=== PATIENT | male | born 1955 | race Caucasian/White ===

== ENCOUNTER 2019-07-17 13:35 | Inpatient (IN) | payer OTHER ==
[2019-07-17 15:59] VITALS: BMI 30.9
--- NOTE | 2019-07-17 17:53 | HP ---
"CIWA Score Nausea/Vomitin Muscle Tremors: 7-Severe,w/o Arm Extended Anxiety: 3 Agitation: 1-Slight > Activity Paroxysmal Sweats: 3 (Increased facial moisture) Orientation: 0-Oriented Tacttile Disturbances: 0-None Auditory Disturbances: 0-None Visual Disturbances: 0-None Headache: 0-None Present CIWA-Ar Total Score: 17 - Admission Criteria OASAS Guidelines: Admission for Medically Managed Detox: Requires at least one of the followin. CIWA greater than 12 2. Seizures within the past 24 hours 3. Delirium tremens within the past 24 hours 4. Hallucinations within the past 24 hours 5. Acute intervention needed for co occurring medical disorder 6. Acute intervention needed for co occurring psychiatric disorder 7. Severe withdrawal that cannot be handled at a lower level of care (continued vomiting, continued diarrhea, abnormal vital signs) requiring intravenous medication and/or fluids 8. Patient presents the following: CIWA greater than 12 (DENZEL: 0.036) Admission Criteria Met: Admission criteria met Admission ROS S - HPI Chief Complaint: Here to detox from alcohol cause every morning I get up sick. Allergies/Adverse Reactions: Allergies Allergy/AdvReac Type Severity Reaction Status Date / Time No Known Allergies Allergy Verified 07/17/19 15:54 History of Present Illness: First admission for this 64 yo w/ alcohol withdrawal symptoms seeking detox. Has had prior detoxes at other facilities over 5 years ago. Denies hx seizures or blackouts. DENZEL: 0.036 UTox: Neg Alcohol use since age 6/8. Currently drinks 2 pints vodka x past 5 mongths. Heroin age 21. Was on MMTP and stopped all opiates and MTD 6 years ago. Nicotine use since age 48. Smokes 1 PPD. PMHx: HTN - doesn't take when drinks. Doesn't remember name of medications. ? Pharmacy: [facility]: [phone] MHHx: Maxim depression. Denies thoughts of harming self or others. SHx: Domiciled. Unemployed. Denies legal issues. Search Terms: Franky Weinstein, 1955 Search Date: 07/17/2019 05:57:05 PM The Drug Utilization Report below displays all of the controlled substance prescriptions, if any, that your patient has filled in the last twelve months. The information displayed on this report is compiled from pharmacy submissions to the Department, and accurately reflects the information as submitted by the pharmacies. This report was requested by: Cait Rupali Valeriy | Reference #: [id number] There are no results for the search terms that you entered. Exam Limitations: No Limitations - Ebola screening Have you traveled outside of the country in the last 21 days: No Have you had contact with anyone from an Ebola affected area: No Have you been sick,other than usual withdrawal symptoms: No Do you have a fever: No - Review of Systems Constitutional: Changes in sleep (Difficulty falling asleep.) EENT: reports: Blurred Vision, Dental Problems (Missing many teeth. Chews and swallows ok.) Respiratory: reports: No Symptoms reported Cardiac: reports: No Symptoms Reported GI: reports: Nausea : reports: No Symptoms Reported Musculoskeletal: reports: No Symptoms Reported Integumentary: reports: No Symptoms Reported Neuro: reports: Tremors Endocrine: reports: No Symptoms Reported Hematology: reports: Blood Clots (2019 - blood clot in brain - not palce on blood thinners) Psychiatric: reports: Mood/Affect Appropiate, Orientated x3, Anxious Patient History - PPD History Previous Implant?: Yes Documented Results: Negative w/o proof (Unsure) Implanted On Prior R Admission?: No PPD to be Administered?: Yes - Smoking Cessation Smoking history: Current every day smoker Have you smoked in the past 12 months: Yes Aproximately how many cigarettes per day: 20 Hx Chewing Tobacco Use: No Initiated information on smoking cessation: Yes 'Breaking Loose' booklet given: 07/17/19 - Substance & Tx. History Hx Alcohol Use: Yes Hx Substance Use: Yes Substance Use Type: Alcohol, Heroin Hx Substance Use Treatment: Yes (detox, Methadone d/c'd 6 years ago) - Substances abused Alcohol Substance route: Oral Frequency: Daily Amount used: 2 pints of vodka Age of first use: 6 Date of last use: 07/17/19 Admission Physical Exam BHS - Vital Signs Vital Signs: Vital Signs - 24 hr 07/17/19 15:56 Temperature 97.6 F Pulse Rate 90 Respiratory 18 Rate Blood Pressure 163/99 - Physical General Appearance: Yes: Nourished, Mild Distress, Obese, Tremorous, Sweating ( Increased facial moisture), Other (DENZEL: 0.036) HEENTM: Yes: EOMI, Hearing grossly Normal, Normocephalic, Normal Voice, VESNA, Pharynx Normal Respiratory: Yes: Lungs Clear (Pulse Ox = 97 %), Normal Breath Sounds, No Respiratory Distress, Other (CVough productive of thick whitish -yellow tinged phlegm.) Neck: Yes: No masses,lesions,Nodules, Supple Breast: Yes: Breast Exam Deferred Cardiology: Yes: Regular Rate (H), S1, S2, Irregular (Irreg rhythm) Abdominal: Yes: Non Tender, Soft, Increased Bowel Sounds, Protuberent ( Increased abd adiposity) Genitourinary: Yes: Within Normal Limits Back: Yes: Normal Inspection Musculoskeletal: Yes: full range of Motion, Gait Steady Extremities: Yes: Normal Capillary Refill, Normal Range of Motion, Tremors ( gross tremors) Neurological: Yes: natural resource technician II-XII NML intact, Fully Oriented, Alert, Motor Strength 5/5, Normal Mood/Affect, Normal Response Integumentary: Yes: Normal Color, Warm, Moist (Increased facial moisture) Lymphatic: Yes: Within Normal Limits - Diagnostic (1) Alcohol dependence with withdrawal, uncomplicated Current Visit: Yes Status: Acute (2) Essential (primary) hypertension Current Visit: Yes Status: Acute (3) Obesity (BMI 30.0-34.9) Current Visit: Yes Status: Acute (4) Irregular heart rhythm Current Visit: Yes Status: Acute Cleared for Admission S - Detox or Rehab [facility] Level of Care: Medically Managed Detox Regimen/Protocol: Librium Claeared for Rehab Admission: No Breathalyzer - Breathalyzer Breathalyzer: 0.036 Urine Drug Screen - Test Device Lot number: [id number] Expiration date: 04/10/21 - Control Is test valid?: Yes - Results Drug screen NEGATIVE: Yes Inpatient Rehab Admission - Rehab Decision to Admit Inpatient rehab admission?: No"
[2019-07-17] MEDS ORDERED: MAGNESIUM HYDROX 2400MG/30ML ORAL SUSPENSION 30 ML CUP PO PRN (18:13)
[2019-07-17] MEDS ORDERED: NICOTINE POLACRILEX 2 MG GUM BUC PRN (18:13)
[2019-07-17] MEDS ORDERED: MENTHOL/PHENOL 1 EACH UD MM PRN (18:13)
[2019-07-17] MEDS ORDERED: guaiFENesin 200 MG/10 ML 10 ML UNIT-DOSE CUPS PO PRN (18:13)
[2019-07-17] MEDS ORDERED: BISMUTH SUBSALICYLATE 524 MG/30 ML UD PO PRN (18:13)
[2019-07-17] MEDS ORDERED: MAG HYDROX/AL HYDROX/SIMETH 30 ML UNIT-DOSE CUP PO PRN (18:13)
[2019-07-17] MEDS ORDERED: ACETAMINOPHEN 325 MG TABLET (FP) PO PRN ×2 (18:13)
[2019-07-17] MEDS ORDERED: IBUPROFEN 400 MG TABLET (FP) PO PRN (18:13)
[2019-07-17] MEDS ORDERED: chlordiazePOXIDE HCL 10 MG CAPSULE PO PRN (18:13)
[2019-07-17] MEDS ORDERED: MAGNESIUM CITRATE 300 ML BOTTLE PO PRN (18:13)
[2019-07-17] MEDS ORDERED: cloNIDine HCL 0.1 MG TABLET PO ONE (18:20)
[2019-07-17] MEDS ORDERED: chlordiazePOXIDE HCL 10 MG CAPSULE PO ONE (19:00)
[2019-07-17] MEDS: ASPIRIN COATED 81 MG TABLET.EC PO SCH (19:14)
[2019-07-17] MEDS: guaiFENesin 200 MG/10 ML 10 ML UNIT-DOSE CUPS PO SCH (19:14)
[2019-07-17] MEDS: THIAMINE HCL 100 MG TABLET (FP) PO SCH (21:12)
[2019-07-17] MEDS: chlordiazePOXIDE HCL 25 MG CAPSULE PO SCH (21:12)
[2019-07-18] MEDS: chlordiazePOXIDE HCL 25 MG CAPSULE PO SCH ×3 (05:58→21:04)
[2019-07-18] MEDS: guaiFENesin 200 MG/10 ML 10 ML UNIT-DOSE CUPS PO SCH ×3 (07:56→17:57)
--- NOTE | 2019-07-18 09:05 | PN ---
S CIWA - CIWA Score Nausea/Vomitin-Mild Nausea/No Vomiting Muscle Tremors: 2 Anxiety: 1-Mildly Anxious Agitation: 1-Slight > Activity Paroxysmal Sweats: No Perspiration Orientation: 0-Oriented Tacttile Disturbances: 0-None Auditory Disturbances: 0-None Visual Disturbances: 0-None Headache: 1-Very Mild CIWA-Ar Total Score: 6 BHS Progress Note (SOAP) Subjective: pt admitted yesterday for alcohol detox. States feeling fine today. Plan is to go back home after detox O: Vital Signs - 24 hr 07/17/19 07/17/19 07/17/19 15:56 19:12 21:20 Temperature 97.6 F 97.9 F 97.5 F L Pulse Rate 90 80 122 H Respiratory 18 18 18 Rate Blood Pressure 163/99 161/118 H 149/99 07/18/19 07/18/19 07/18/19 00:30 03:30 06:24 Temperature 97.7 F Pulse Rate 102 H Respiratory 18 18 16 Rate Blood Pressure 142/97 labs pending a/p: Alcohol detox- continue protocol High BP: pt states he has a h/o HTN, stopped taking meds several months ago- does not know name of meds will start on norvasc 5mg and monitor BP
[2019-07-18] MEDS: PRENATAL VITAMINS W/ FOLIC ACID TABLET (FP) PO SCH (09:19)
[2019-07-18] MEDS: NICOTINE 21 MG/24 HOURS TOPICAL PATCH TD SCH (09:19)
[2019-07-18] MEDS: ASPIRIN COATED 81 MG TABLET.EC PO SCH (09:19)
--- NOTE | 2019-07-18 09:26 | EKG ---
Test Reason : Blood Pressure : / mmHG Vent. Rate : 124 BPM Atrial Rate : 115 BPM P-R Int : 000 ms QRS Dur : 084 ms QT Int : 286 ms P-R-T Axes : 000 -65 016 degrees QTc Int : 410 ms POOR DATA QUALITY, INTERPRETATION MAY BE ADVERSELY AFFECTED ATRIAL FIBRILLATION WITH RAPID VENTRICULAR RESPONSE WITH PREMATURE VENTRICULAR OR ABERRANTLY CONDUCTED COMPLEXES PULMONARY DISEASE PATTERN LEFT ANTERIOR FASCICULAR BLOCK ABNORMAL ECG NO PREVIOUS ECGS AVAILABLE Confirmed by Benny Prieto MD ([id number]) on 07/18/2019 9:26:19 AM Referred By: Confirmed By:Benny Prieto MD
[2019-07-18 09:40] LABS: HEMOGLOBIN 14.1 GM/dL (11.7-16.9); MCH 34.5 pg (25.7-33.7); MCHC 33.6 g/dl (32.0-35.9); MEAN CELL VOLUME 102.6 fl (80-96); MEAN PLT VOLUME 9.8 fl (7.5-11.1); PLATELET COUNT 123 K/MM3 (134-434); RDW 14.7 % (11.9-15.9)
[2019-07-18 11:09] LABS: ALBUMIN 3.7 g/dl (3.4-5.0); BILIRUBIN,TOTAL 1.2 mg/dL (0.2-1); BLOOD UREA NITROGEN 12.3 mg/dL (7-18); CALCIUM 9.3 mg/dL (8.5-10.1); POTASSIUM 4.8 mmol/L (3.5-5.1); TOT PROT 7.3 g/dl (6.4-8.2)
[2019-07-18] MEDS: amLODIPine BESYLATE 5 MG TABLET (FP) PO SCH (12:36)
[2019-07-18] MEDS: MELATONIN 5 MG TABLETS PO PRN (22:04)
[2019-07-18] MEDS: THIAMINE HCL 100 MG TABLET (FP) PO SCH (22:04)
[2019-07-19] MEDS: chlordiazePOXIDE 5 MG CAPSULE PO SCH ×3 (05:30→22:08)
[2019-07-19] MEDS: guaiFENesin 200 MG/10 ML 10 ML UNIT-DOSE CUPS PO SCH ×4 (05:31→17:56)
[2019-07-19] MEDS: amLODIPine BESYLATE 5 MG TABLET (FP) PO SCH (10:05)
[2019-07-19] MEDS: PRENATAL VITAMINS W/ FOLIC ACID TABLET (FP) PO SCH (10:05)
[2019-07-19] MEDS: ASPIRIN COATED 81 MG TABLET.EC PO SCH (10:05)
[2019-07-19] MEDS: NICOTINE 21 MG/24 HOURS TOPICAL PATCH TD SCH (10:05)
[2019-07-19 10:36] LABS: PH,URINE 6.5 (5.0-8.0); URINE APPEARANCE CLEAR; URINE BILIRUBIN NEGATIVE (NEGATIVE); URINE COLOR DK YELLOW; URINE GLUCOSE (UA) NEGATIVE (NEGATIVE); URINE KETONE 1+ (NEGATIVE); URINE LEUK ESTERASE NEGATIVE (NEGATIVE); URINE NITRITE NEGATIVE (NEGATIVE); URINE PROTEIN TRACE (NEGATIVE)
--- NOTE | 2019-07-19 11:01 | PN ---
[facility] CIWA - CIWA Score Nausea/Vomitin-Mild Nausea/No Vomiting Muscle Tremors: 2 Anxiety: 2 Agitation: 2 Paroxysmal Sweats: No Perspiration Orientation: 0-Oriented Tacttile Disturbances: 1-Very Mild Itch/Numbness Auditory Disturbances: 0-None Visual Disturbances: 0-None Headache: 1-Very Mild CIWA-Ar Total Score: 9 S Progress Note (SOAP) Subjective: alert,irritable,anxious,interrupted sleep,interrupted Objective: 07/19/19 11:00 Vital Signs Temperature 97.9 F 07/19/19 09:15 Pulse Rate 105 H 07/19/19 09:15 Respiratory Rate 18 07/19/19 09:15 Blood Pressure 132/76 07/19/19 09:15 O2 Sat by Pulse Oximetry (%) Laboratory Last Values WBC 4.0 K/mm3 (4.0-10.0) 07/18/19 08:00 RBC 4.10 M/mm3 (4.00-5.60) 07/18/19 08:00 Hgb 14.1 GM/dL (11.7-16.9) 07/18/19 08:00 Hct 42.0 % (35.4-49) 07/18/19 08:00 MCV 102.6 fl (80-96) H 07/18/19 08:00 MCH 34.5 pg (25.7-33.7) H 07/18/19 08:00 MCHC 33.6 g/dl (32.0-35.9) 07/18/19 08:00 RDW 14.7 % (11.9-15.9) 07/18/19 08:00 Plt Count 123 K/MM3 (134-434) L 07/18/19 08:00 MPV 9.8 fl (7.5-11.1) 07/18/19 08:00 Sodium 136 mmol/L (136-145) 07/18/19 08:00 Potassium 4.8 mmol/L (3.5-5.1) 07/18/19 08:00 Chloride 102 mmol/L (98-107) 07/18/19 08:00 Carbon Dioxide 27 mmol/L (21-32) 07/18/19 08:00 Anion Gap 6 MMOL/L (8-16) L 07/18/19 08:00 BUN 12.3 mg/dL (7-18) 07/18/19 08:00 Creatinine 1.0 mg/dL (0.55-1.3) 07/18/19 08:00 Est GFR (CKD-EPI)AfAm 91.13 07/18/19 08:00 Est GFR (CKD-EPI)NonAf 78.63 07/18/19 08:00 Random Glucose 86 mg/dL (74-106) 07/18/19 08:00 Calcium 9.3 mg/dL (8.5-10.1) 07/18/19 08:00 Total Bilirubin 1.2 mg/dL (0.2-1) H 07/18/19 08:00 AST 87 U/L (15-37) H 07/18/19 08:00 ALT 46 U/L (13-61) 07/18/19 08:00 Alkaline Phosphatase 56 U/L (45-117) 07/18/19 08:00 Total Protein 7.3 g/dl (6.4-8.2) 07/18/19 08:00 Albumin 3.7 g/dl (3.4-5.0) 07/18/19 08:00 Urine Color Dk yellow 07/19/19 08:00 Urine Appearance Clear 07/19/19 08:00 Urine pH 6.5 (5.0-8.0) 07/19/19 08:00 Ur Specific [place] 1.025 (1.010-1.035) 07/19/19 08:00 Urine Protein Trace (NEGATIVE) 07/19/19 08:00 Urine Glucose (UA) Negative (NEGATIVE) 07/19/19 08:00 Urine Ketones 1+ (NEGATIVE) H 07/19/19 08:00 Urine Blood Negative (NEGATIVE) 07/19/19 08:00 Urine Nitrite Negative (NEGATIVE) 07/19/19 08:00 Urine Bilirubin Negative (NEGATIVE) 07/19/19 08:00 Urine Urobilinogen 1.0 mg/dL (0.2-1.0) 07/19/19 08:00 Ur Leukocyte Esterase Negative (NEGATIVE) 07/19/19 08:00 RPR Titer Nonreactive (NONREACTIVE) 07/18/19 08:00 Assessment: 07/19/19 11:01 [facility] symptom Plan: continue detox librium,tachycardia,repeat ekg today,bili 1.2,aast 87,repeat bili ,ast in am
--- NOTE | 2019-07-19 14:16 | PN ---
S Progress Note Note: repeat ekg atrial fibrillation rate 90/min.no chest pain,no sob,no dizziness, patient is on baby asa 81 mgs Vital Signs Temperature 97.9 F 07/19/19 09:15 Pulse Rate 105 H 07/19/19 09:15 Respiratory Rate 18 07/19/19 09:15 Blood Pressure 132/76 07/19/19 09:15 O2 Sat by Pulse Oximetry (%) daily will continue detox,close monitoring
[2019-07-19] MEDS: MELATONIN 5 MG TABLETS PO PRN (22:08)
[2019-07-19] MEDS: THIAMINE HCL 100 MG TABLET (FP) PO SCH (22:11)
[2019-07-20] MEDS ORDERED: chlordiazePOXIDE HCL 10 MG CAPSULE PO PRN
[2019-07-20] MEDS: guaiFENesin 200 MG/10 ML 10 ML UNIT-DOSE CUPS PO SCH ×3 (01:03→14:18)
[2019-07-20] MEDS: chlordiazePOXIDE HCL 10 MG CAPSULE PO SCH ×3 (05:28→22:10)
[2019-07-20] MEDS: NICOTINE 21 MG/24 HOURS TOPICAL PATCH TD SCH (09:15)
[2019-07-20] MEDS: ASPIRIN COATED 81 MG TABLET.EC PO SCH (09:15)
[2019-07-20] MEDS: PRENATAL VITAMINS W/ FOLIC ACID TABLET (FP) PO SCH (09:15)
--- NOTE | 2019-07-20 09:41 | PN ---
S CIWA - CIWA Score Nausea/Vomitin-No Nausea/No Vomiting Muscle Tremors: 2 Anxiety: 2 Agitation: 0-Normal Activity Paroxysmal Sweats: 2 Orientation: 1-Uncertain about Date Tacttile Disturbances: 1-Very Mild Itch/Numbness Auditory Disturbances: 0-None Visual Disturbances: 0-None Headache: 0-None Present CIWA-Ar Total Score: 8 BHS Progress Note (SOAP) Subjective: c/o of shakes, chills, interrupted sleep Objective: 07/20/19 09:40 Vital Signs Temperature 98.1 F 07/20/19 09:19 Pulse Rate 84 07/20/19 09:19 Respiratory Rate 18 07/20/19 09:19 Blood Pressure 97/65 07/20/19 09:19 O2 Sat by Pulse Oximetry (%) Laboratory Last Values WBC 4.0 K/mm3 (4.0-10.0) 07/18/19 08:00 RBC 4.10 M/mm3 (4.00-5.60) 07/18/19 08:00 Hgb 14.1 GM/dL (11.7-16.9) 07/18/19 08:00 Hct 42.0 % (35.4-49) 07/18/19 08:00 MCV 102.6 fl (80-96) H 07/18/19 08:00 MCH 34.5 pg (25.7-33.7) H 07/18/19 08:00 MCHC 33.6 g/dl (32.0-35.9) 07/18/19 08:00 RDW 14.7 % (11.9-15.9) 07/18/19 08:00 Plt Count 123 K/MM3 (134-434) L 07/18/19 08:00 MPV 9.8 fl (7.5-11.1) 07/18/19 08:00 Sodium 136 mmol/L (136-145) 07/18/19 08:00 Potassium 4.8 mmol/L (3.5-5.1) 07/18/19 08:00 Chloride 102 mmol/L (98-107) 07/18/19 08:00 Carbon Dioxide 27 mmol/L (21-32) 07/18/19 08:00 Anion Gap 6 MMOL/L (8-16) L 07/18/19 08:00 BUN 12.3 mg/dL (7-18) 07/18/19 08:00 Creatinine 1.0 mg/dL (0.55-1.3) 07/18/19 08:00 Est GFR (CKD-EPI)AfAm 91.13 07/18/19 08:00 Est GFR (CKD-EPI)NonAf 78.63 07/18/19 08:00 Random Glucose 86 mg/dL (74-106) 07/18/19 08:00 Calcium 9.3 mg/dL (8.5-10.1) 07/18/19 08:00 Total Bilirubin 1.2 mg/dL (0.2-1) H 07/18/19 08:00 AST 87 U/L (15-37) H 07/18/19 08:00 ALT 46 U/L (13-61) 07/18/19 08:00 Alkaline Phosphatase 56 U/L (45-117) 07/18/19 08:00 Total Protein 7.3 g/dl (6.4-8.2) 07/18/19 08:00 Albumin 3.7 g/dl (3.4-5.0) 07/18/19 08:00 Urine Color Dk yellow 07/19/19 08:00 Urine Appearance Clear 07/19/19 08:00 Urine pH 6.5 (5.0-8.0) 07/19/19 08:00 Ur Specific [place] 1.025 (1.010-1.035) 07/19/19 08:00 Urine Protein Trace (NEGATIVE) 07/19/19 08:00 Urine Glucose (UA) Negative (NEGATIVE) 07/19/19 08:00 Urine Ketones 1+ (NEGATIVE) H 07/19/19 08:00 Urine Blood Negative (NEGATIVE) 07/19/19 08:00 Urine Nitrite Negative (NEGATIVE) 07/19/19 08:00 Urine Bilirubin Negative (NEGATIVE) 07/19/19 08:00 Urine Urobilinogen 1.0 mg/dL (0.2-1.0) 07/19/19 08:00 Ur Leukocyte Esterase Negative (NEGATIVE) 07/19/19 08:00 RPR Titer Nonreactive (NONREACTIVE) 07/18/19 08:00 repeat labs pending Assessment: 07/20/19 09:40 Patient AO x3 no acute distress full ROM ambulating in the unit withdrawal sx Plan: increase fluids labs pending continue detox patient to follow up with primary care provider upon dsicharge continue to monitor
[2019-07-20 10:52] LABS: BILIRUBIN,TOTAL 0.8 mg/dL (0.2-1)
--- NOTE | 2019-07-20 11:54 | EKG ---
Test Reason : Blood Pressure : / mmHG Vent. Rate : 094 BPM Atrial Rate : 079 BPM P-R Int : 000 ms QRS Dur : 084 ms QT Int : 332 ms P-R-T Axes : 000 -69 -49 degrees QTc Int : 415 ms ATRIAL FIBRILLATION PULMONARY DISEASE PATTERN LEFT ANTERIOR FASCICULAR BLOCK SEPTAL INFARCT , AGE UNDETERMINED ABNORMAL ECG WHEN COMPARED WITH ECG OF 17-JUL-2019 19:30, SEPTAL INFARCT IS NOW PRESENT INVERTED T WAVES HAVE REPLACED NONSPECIFIC T WAVE ABNORMALITY IN LATERAL LEADS Confirmed by ELLEN VASQUES MD ([id number]) on 07/20/2019 11:53:43 AM Referred By: Confirmed By:ELLEN VASQUES MD
[2019-07-20] MEDS: amLODIPine BESYLATE 5 MG TABLET (FP) PO SCH (14:22)
[2019-07-20] MEDS: THIAMINE HCL 100 MG TABLET (FP) PO SCH (22:10)
[2019-07-20] MEDS: MELATONIN 5 MG TABLETS PO PRN (22:10)
[2019-07-21] MEDS ORDERED: chlordiazePOXIDE HCL 10 MG CAPSULE PO ONE (05:00)
[2019-07-21 07:45] VITALS: PULSE 109
--- NOTE | 2019-07-21 08:55 | DS ---
[facility] Detox Discharge Summary Admission Date: 07/17/19 Discharge Date: 07/21/19 - History Present History: Alcohol Dependence - Physical Exam Results Vital Signs: Vital Signs Temperature 98.1 F 07/21/19 07:44 Pulse Rate 109 H 07/21/19 07:44 Respiratory Rate 07/21/19 07:44 Blood Pressure 136/89 07/21/19 07:44 O2 Sat by Pulse Oximetry (%) Pertinent Admission Physical Exam Findings: Vital Signs Temperature 98.1 F 07/21/19 07:44 Pulse Rate 109 H 07/21/19 07:44 Respiratory Rate 07/21/19 07:44 Blood Pressure 136/89 07/21/19 07:44 O2 Sat by Pulse Oximetry (%) Laboratory Tests 07/18/19 07/18/19 07/18/19 08:00 08:00 08:00 WBC 4.0 RBC 4.10 Hgb 14.1 Hct 42.0 MCV 102.6 H MCH 34.5 H MCHC 33.6 RDW 14.7 Plt Count 123 L MPV 9.8 Sodium 136 Potassium 4.8 Chloride 102 Carbon Dioxide 27 Anion Gap 6 L BUN 12.3 Creatinine 1.0 Est GFR (CKD-EPI)AfAm 91.13 Est GFR (CKD-EPI)NonAf 78.63 Random Glucose 86 Calcium 9.3 Total Bilirubin 1.2 H AST 87 H ALT 46 Alkaline Phosphatase 56 Total Protein 7.3 Albumin 3.7 Urine Color Urine Appearance Urine pH Ur Specific [place] Urine Protein Urine Glucose (UA) Urine Ketones Urine Blood Urine Nitrite Urine Bilirubin Urine Urobilinogen Ur Leukocyte Esterase RPR Titer Nonreactive 07/19/19 07/20/19 08:00 08:15 WBC RBC Hgb Hct MCV MCH MCHC RDW Plt Count MPV Sodium Potassium Chloride Carbon Dioxide Anion Gap BUN Creatinine Est GFR (CKD-EPI)AfAm Est GFR (CKD-EPI)NonAf Random Glucose Calcium Total Bilirubin 0.8 AST 46 H ALT Alkaline Phosphatase Total Protein Albumin Urine Color Dk yellow Urine Appearance Clear Urine pH 6.5 Ur Specific [place] 1.025 Urine Protein Trace Urine Glucose (UA) Negative Urine Ketones 1+ H Urine Blood Negative Urine Nitrite Negative Urine Bilirubin Negative Urine Urobilinogen 1.0 Ur Leukocyte Esterase Negative RPR Titer aaox3 ambulating no acute distress - Treatment Hospital Course: Detox Protocol Followed, Detoxed Safely, Responded well, Discharged Condition Good, Rehab Referral Accepted Patient has Accepted a Rehab Referral to: pt declined;referral provided - Medication Discharge Medications: Ambulatory Orders NK [No Known Home Medication] 07/17/19 - Diagnosis (1) Alcohol dependence with withdrawal, uncomplicated Current Visit: Yes Status: Chronic (2) Essential (primary) hypertension Current Visit: Yes Status: Chronic (3) Irregular heart rhythm Current Visit: Yes Status: Acute (4) Obesity (BMI 30.0-34.9) Current Visit: Yes Status: Acute - AMA Did Patient Leave Against Medical Advice: No
[2019-07-21] MEDS: ASPIRIN COATED 81 MG TABLET.EC PO SCH (09:20)
[2019-07-21] MEDS: PRENATAL VITAMINS W/ FOLIC ACID TABLET (FP) PO SCH (09:20)
[2019-07-21] MEDS: amLODIPine BESYLATE 5 MG TABLET (FP) PO SCH (09:20)
[2019-07-21] MEDS: NICOTINE 21 MG/24 HOURS TOPICAL PATCH TD SCH (09:21)
[2019-07-21 10:06] VITALS: BP 109/71; TEMP 98.2
[2019-07-21 10:47] LABS: PH,URINE 6.5 (5.0-8.0); URINE APPEARANCE CLEAR; URINE BILIRUBIN NEGATIVE (NEGATIVE); URINE COLOR YELLOW; URINE GLUCOSE (UA) NEGATIVE (NEGATIVE); URINE KETONE NEGATIVE (NEGATIVE); URINE LEUK ESTERASE NEGATIVE (NEGATIVE); URINE NITRITE NEGATIVE (NEGATIVE); URINE PROTEIN NEGATIVE (NEGATIVE)
== END 2019-07-21 09:58 | disposition home or self-care (01) | DRG 897 ==
LOC: YASAS 13:35 → Y6N 18:36
PROVIDERS: ADMIT Allergy & Immunology; ATTEND Allergy & Immunology
PROC: HZ2ZZZZ Detoxification Services for Substance Abuse Treatment (ICD-10-PCS; principal; 2019-07-17)
DX: F10.230 Alcohol dependence with withdrawal, uncomplicated (principal); F17.210 Nicotine dependence, cigarettes, uncomplicated; I10 Essential (primary) hypertension; I49.9 Cardiac arrhythmia, unspecified; I48.91 Unspecified atrial fibrillation; E66.9 Obesity, unspecified; Z68.31 Body mass index [BMI] 31.0-31.9, adult; Z86.69 Personal history of other diseases of the nervous system and sense organs; Z56.0 Unemployment, unspecified
CPT/HCPCS: 36415; 80053; 81003; 82247; 84450; 85027; 86593; 93005; 93010; J0735